=== PATIENT | female | born 1970 | race Two or more races ===

== ENCOUNTER 2022-10-15 04:27 | Day surgery (SDC) | payer BC ==
[2022-10-14 08:35] VITALS: BMI 33.7
[2022-10-15] MEDS ORDERED: LIDOCAINE HCL 1%, 10 MG/ML (20ML VIAL) ONE ×2 (09:29→10:01)
[2022-10-15] MEDS ORDERED: BUPIVACAINE HCL/PF 0.5% (5MG/ML) 10 ML VIAL ONE (09:30)
[2022-10-15 11:05] VITALS: BP 130/84; PULSE 79; RESP 16; TEMP 97.5
== END 2022-10-15 11:30 | disposition home or self-care (01) ==
LOC: JASU-SURG 04:27
PROVIDERS: ATTEND Surgery
PROC: 0HBU0ZX Excision of Left Breast, Open Approach, Diagnostic (ICD-10-PCS; principal; 2022-10-15 09:00)
DX: D24.2 Benign neoplasm of left breast (principal)
CPT/HCPCS: 19281; 19282; 76098-TC-FY; 81025